=== PATIENT | male | born 1975 | race Hispanic/Latino ===

== ENCOUNTER → 2018-07-08 12:54 | Outpatient (CLI) | payer OTHER, SELFPAY | PROVIDERS: Visit Provider Physician Assistant | DX: Z53.9 Procedure and treatment not carried out, unspecified reason (principal) ==

== ENCOUNTER → 2018-07-08 13:02 | Outpatient (CLI) | payer OTHER, SELFPAY | PROVIDERS: Visit Provider Physician Assistant | DX: Z53.9 Procedure and treatment not carried out, unspecified reason (principal) ==

== ENCOUNTER → 2018-07-10 17:53 | Outpatient (CLI) | payer OTHER, SELFPAY | PROVIDERS: Visit Provider Physician Assistant | DX: R19.4 Change in bowel habit (principal) | CPT/HCPCS: 87177 ==

== ENCOUNTER → 2018-07-23 11:30 | Outpatient (CLI) | payer OTHER, SELFPAY ==
[2018-07-23 12:20] LABS: Add Manual Diff / Slide Review NO; Basophils Percent Auto 0.6 % (0-2); Eosinophils Percent Auto 2.4 % (2-4); Hematocrit 46.2 % (41-53); Hemoglobin 15.1 g/dL (13.5-17.5); Lymphocytes Percent Auto 16.3 % (25-40); Mean Corpuscular HGB Conc 32.7 % (30-36); Mean Corpuscular Hemoglobin 28.6 PG (26-34); Mean Corpuscular Volume 87.4 fL (80-100); Neutrophils Absolute Auto 5600 /uL (3000-5900); Neutrophils Percent Auto 71.7 % (50-75); Platelet Count 360 X10^3/uL (150-400); Red Blood Cell Count 5.28 X10^6/uL (4.5-5.9); Red Cell Distribution Width 13.9 % (11.6-14.8); White Blood Cell Count 7.9 X10^3/uL (4.5-11.0)
[2018-07-23 12:34] LABS: HEMOLYSIS < 15 (0-50); Iron 52 ug/dL (49-181)
[2018-07-23 12:36] LABS: Alanine Aminotransferase 54 IU/L (21-72); Albumin 3.9 g/dL (3.5-5.0); Albumin Globulin Ratio 1.1 (1.0-2.8); Alkaline Phosphatase 33 U/L (38-126); Aspartate Aminotransferase 59 IU/L (17-59); BUN Creatinine Ratio 10.8 (6-22); Bilirubin Total 0.5 mg/dL (0.2-1.3); Blood Urea Nitrogen 13 mg/dL (9-20); Calcium 8.8 mg/dL (8.4-10.2); Carbon Dioxide 31 mmol/L (22-32); Chloride 104 mmol/L (98-107); Estimated Glomerular Filt Rate > 60.0 mL/min (>60); Globulin 3.4 g/dL (1.7-4.1); Glucose 100 mg/dL (70-100); HEMOLYSIS < 15 (0-50); Potassium 4.9 mmol/L (3.4-5.1); Sodium 141 mmol/L (137-145); Total Protein 7.3 g/dL (6.3-8.2)
[2018-07-23 12:47] LABS: Percent Iron Saturation 11 % (20-50); Total Iron Binding Capacity 464 ug/dL (261-462); Transferrin 377 mg/dL (206-381)
[2018-07-23 13:04] LABS: Thyroid Stimulating Hormone 0.87 uIU/mL (0.47-4.68)
[2018-07-23 13:09] LABS: Ferritin 16.3 ng/mL (17.9-464)
== END ==
PROVIDERS: Visit Provider Physician Assistant
DX: K62.5 Hemorrhage of anus and rectum (principal); R53.83 Other fatigue
CPT/HCPCS: 36415; 80053; 82728; 83540; 83550; 84443; 85025

== ENCOUNTER → 2022-04-02 13:05 | Outpatient (CLI) | payer OTHER, SELFPAY ==
--- NOTE | 2022-04-02 | DI.MRI.S_ITS ---
PROCEDURE: MR LUMBAR SPINE WO CON INDICATIONS: Sciatica, left side TECHNIQUE: Noncontrast sagittal T1 spin echo and T2 fast echo, sagittal STIR, and T2 fast spin echo through the lumbar spine. In cases with scoliosis, additional coronal T2 fast spin echo may be performed. COMPARISON: None. FINDINGS: Image quality: Excellent. Alignment and Curvature: There is normal bony alignment. Bone Marrow: Marrow is of normal overall signal. No acute vertebral body compression fractures. Spinal Cord: Conus medullaris terminates at the L1 level. Visualized cord demonstrates normal signal and size. Paraspinous Soft Tissues: No paravertebral masses. T12-L1: Normal appearance. L1-L2: Disc space narrowing with mild circumferential disc bulge noted. No central or foraminal stenosis L2-L3: Disc space narrowing with circumferential disc bulge results in mild central stenosis. No foraminal stenosis L3-L4: Disc space narrowing with circumferential disc bulge present. No central or foraminal stenosis. L4-L5: Disc space narrowing with circumferential disc bulge results in mild central stenosis. No foraminal stenosis. L5-S1: Mild disc space narrowing circumferential disc bulge present. Degenerative hypertrophic facet joints present. There is a large left synovial cyst arising from the left facet, filling the left lateral recess, and displacing the descending nerve root. No central or right foraminal stenosis present. Moderate left foraminal stenosis. IMPRESSION: 1. Large left L5-S1 synovial cyst fills the left lateral recess displacing the descending nerve root. 2. Multilevel degenerative disc disease and arthropathy Approved by: Ildefonso Washington M.D. on 04/02/2022 at 17:00
== END ==
PROVIDERS: PCP Family Medicine; Referring Provider Chiropractor Independent Medical Examiner; Visit Provider Chiropractor Independent Medical Examiner
DX: M54.32 Sciatica, left side (principal); M71.38 Other bursal cyst, other site; M51.36 Other intervertebral disc degeneration, lumbar region
CPT/HCPCS: 72148